=== PATIENT | female | born 1955 | race Caucasian/White ===

== ENCOUNTER 2021-01-26 14:15 | Outpatient (CLI) | payer MEDICARE ==
[2021-01-26 16:11] LABS: Anion Gap 15 mmol/L (10-20); BUN (Urea Nitrogen) 17 mg/dL (9.8-20.1); Calc. Creatinine Clearance 0 mL/min (70-130); Calcium 10.3 mg/dL (7.8-10.44); Carbon Dioxide 24 mmol/L (23-31); Chloride 106 mmol/L (98-107); Glucose 108 mg/dL (80-115); Potassium 4.3 mmol/L (3.5-5.1); Sodium 141 mmol/L (136-145)
[2021-01-26 16:28] LABS: Hemoglobin 13.7 g/dL (12.0-15.5); Mean Corpuscular HGB CONC 32.2 g/dL (32.0-36.0); Mean Corpuscular Hemoglobin 29.8 pg (27.0-33.0); Mean Corpuscular Volume 92.6 fl (81.6-98.3); Mean Platelet Volume 10.6 fl (7.4-10.4); Platelet Count 405 10x3/uL (150-450); RBC Distribution Width 13.9 % (11.5-14.5); White Blood Cell (WBC) Count 10.2 10x3/uL (3.5-10.5)
[2021-01-27 15:24] LABS: SARS-CoV-2 PCR by NAA Not Detected (NotDetected)
== END 2021-01-26 14:16 | disposition home or self-care (01) ==
LOC: LABBT 14:15
PROVIDERS: ATTEND Neurological Surgery
DX: Z01.812 Encounter for preprocedural laboratory examination (principal); M54.16 Radiculopathy, lumbar region; Z20.822 Contact with and (suspected) exposure to COVID-19
CPT/HCPCS: 80048; 85027; U0003; U0005

== ENCOUNTER 2021-01-31 05:52 | Day surgery (SDC) | payer MEDICARE ==
[2021-01-29 14:57] VITALS: BMI 34.2
[2021-01-31] MEDS ORDERED: Thrombin 5000 UNITS/5 ML VIAL ONE (06:14)
[2021-01-31] MEDS ORDERED: EPINEPHrine 1 MG/ML AMP ONE (06:14)
[2021-01-31] MEDS ORDERED: Bupivacaine PF 0.5% 30 ML VIAL ONE (06:14)
[2021-01-31] MEDS ORDERED: Fentanyl 100 MCG/2 ML VIAL ONE ×3 (06:30→11:01)
[2021-01-31] MEDS ORDERED: Midazolam HCl 2 mg/2 ml Vial ONE (06:59)
[2021-01-31] MEDS ORDERED: Dexamethasone 20 MG/5 ML VIAL ONE (07:15)
[2021-01-31] MEDS ORDERED: Lidocaine 1% PF 5 ML VIAL ONE (07:15)
[2021-01-31] MEDS ORDERED: PHENYLEPHRINE-NS 100 MCG/ML 10 ML SYRINGE ONE ×2 (07:15→08:36)
[2021-01-31] MEDS ORDERED: PROPOFOL 200 MG/20 ML VIAL ONE (07:15)
[2021-01-31] MEDS ORDERED: Ondansetron PF 4 MG/2 ML Vial ONE ×2 (07:15→12:19)
[2021-01-31] MEDS ORDERED: Rocuronium Bromide 10 MG/ML (10ML VIAL) ONE (07:15)
[2021-01-31] MEDS ORDERED: SUGAMMADEX SODIUM 200 MG/2 ML VIAL ONE (08:36)
[2021-01-31] MEDS ORDERED: HYDROmorphone 2 MG/ML VIAL SLOW IVP PRN (08:43)
[2021-01-31] MEDS ORDERED: Ondansetron HCl/PF 4 MG/2 ML Vial IVP PRN (08:43)
[2021-01-31] MEDS ORDERED: HYDROmorphone 2 MG/ML VIAL ONE (09:19)
[2021-01-31] MEDS ORDERED: Meperidine HCl/PF 25 MG/ML VIAL ONE (10:46)
[2021-01-31] MEDS ORDERED: Dexamethasone 4 mg/ml Vial ONE (11:17)
[2021-01-31] MEDS ORDERED: HYDROcodone/Acetaminophen 5/325 mg Tablet ONE ×2 (12:03→16:40)
[2021-01-31] MEDS ORDERED: Morphine 2 MG/ML VIAL ONE ×2 (13:43→16:14)
== END 2021-01-31 17:00 | disposition home or self-care (01) ==
LOC: SDC 05:52
PROVIDERS: ATTEND Neurological Surgery
PROC: 01NB0ZZ Release Lumbar Nerve, Open Approach (ICD-10-PCS; principal; 2021-01-31)
DX: M54.16 Radiculopathy, lumbar region (principal); E78.00 Pure hypercholesterolemia, unspecified; M19.90 Unspecified osteoarthritis, unspecified site; G89.4 Chronic pain syndrome; I25.10 Atherosclerotic heart disease of native coronary artery without angina pectoris; I10 Essential (primary) hypertension; Z86.73 Personal history of transient ischemic attack (TIA), and cerebral infarction without residual deficits; Z79.02 Long term (current) use of antithrombotics/antiplatelets; Z79.899 Other long term (current) drug therapy; Z88.6 Allergy status to analgesic agent; Z88.8 Allergy status to other drugs, medicaments and biological substances; Z98.1 Arthrodesis status
CPT/HCPCS: 63030; 76000; 93005; J2270; 93010; J0171; J0690; J1100; J1170; J2175; J2250; J2405; J2704; J3010; S0020